=== PATIENT | female | born 1985 | race African-American/Black ===

== ENCOUNTER 2018-08-03 15:47 | Inpatient (IN) | payer BC ==
[2018-08-03] MEDS ORDERED: Dinoprostone* 10 MG VAG.SUPP VAGINAL ONE (17:48)
[2018-08-03] MEDS ORDERED: Labetalol TAB* 200 MG PO SCH ×2 (18:00)
[2018-08-03 19:01] LABS: Hematocrit 35 % (35-47); Hemoglobin 11.7 g/dl (12.0-16.0); Mean Corpuscular HGB Conc 33 g/dl (31-36); Mean Corpuscular Hemoglobin 30 pg (27-31); Mean Corpuscular Volume 89 fL (80-97); Mean Platelet Volume 10.4 fL (7.4-10.4); Platelet Count 217 10^3/ul (150-450); Red Blood Count 3.95 10^6/ul (4.00-5.40); Red Cell Distribution Width 15 % (10.5-15); White Blood Count 8.3 10^3/ul (3.5-10.8)
[2018-08-03 19:15] LABS: ABS Basophils 0 10^3/ul (0-0.2); ABS Eosinophils 0.1 10^3/ul (0-0.6); ABS Lymphocytes 2.4 10^3/ul (1.0-4.8); ABS Monocytes 0.4 10^3/ul (0-0.8); ABS Neutrophils 5.5 10^3/ul (1.5-7.7); ABS Nucleated RBC 0 10^3/ul; Eosinophil % 0.7 %; Lymphocyte % 28.4 %; Nucleated Red Blood Cells % 0
[2018-08-03 19:17] LABS: Albumin 3.5 g/dL (3.2-5.2); Albumin/Globulin Ratio 1.2 (1-3); BUN/Creatinine Ratio 17.2 (8-20); Calcium 9.1 mg/dL (8.6-10.3); EGFR African American 131.8 (>60); Potassium 3.7 mmol/L (3.5-5.0); Total Bilirubin 0.2 mg/dL (0.2-1.0); Total Protein 6.5 g/dL (6.4-8.9); Uric Acid 4.7 mg/dL (2.3-6.6)
[2018-08-03] MEDS ORDERED: Labetalol IV* 5 MG/ML 20 ML VIAL IV PUSH ONE (21:27)
[2018-08-03] MEDS ORDERED: Labetalol IV* 5 MG/ML 20 ML VIAL ONE (21:36)
[2018-08-03] MEDS ORDERED: Famotidine TAB* 20 MG PO PRN (22:18)
--- NOTE | 2018-08-03 22:51 | HP ---
General Information - Reason for Visit CHTN with borderline IUGR/oligohydramnios and 2+ protein on urine dip - General Information Maternal Age: 32 Grav: 1 Para: 0 SAB: 0 IEA: 0 Estimated Due Date: 08/28/18 Determined By: Early Ultrasound Maternal Blood Type and Rh: O Positive - Results this Serology/RPR Result: Non-Reactive Rubella Result: Immune HBsAg Result: Negative HIV Result: Negative GBS Culture Result: Negative Past Medical History Pertinent Past Medical History: See Records Pertinent Past Surgical History: See Records Pertinent Family History: Non-Contributory - Antepartal Records Antepartal Records: Reviewed, Complicated by: - CHTN Review of Systems Constitutional: Comfortable CV Complaint: No Respiratory: Shortness of Breath: No Gastrointestinal: No Nausea/Vomiting, Normal Bowel Movement Genitourinary: No Dysuria, No Bleeding, No Leaking Fluid Musculoskeletal: No Complaint, No Epigastric Pain Neurological: No Headache, No Visual Changes Movement: Normal Exam Allergies/Adverse Reactions: Allergies Sulfa (Sulfonamide Antibiotics) Allergy (Verified 08/03/18 18:03) Hives sulfamethoxazole [From Bactrim] Allergy (Verified 08/03/18 18:03) Hives trimethoprim [From Bactrim] Allergy (Verified 08/03/18 18:03) Hives Lab Values - Entire Visit: Laboratory Tests 08/03/18 08/03/18 08/03/18 18:40 18:40 18:40 WBC 8.3 RBC 3.95 L Hgb 11.7 L Hct 35 MCV 89 MCH 30 MCHC 33 RDW 15 Plt Count 217 MPV 10.4 Neut % (Auto) 66.1 Lymph % (Auto) 28.4 [place] % (Auto) 4.4 Eos % (Auto) 0.7 Baso % (Auto) 0.4 Absolute Neuts (auto) 5.5 Absolute Lymphs (auto) 2.4 Absolute Monos (auto) 0.4 Absolute Eos (auto) 0.1 Absolute Basos (auto) 0 Absolute Nucleated RBC 0 Nucleated RBC % 0 Sodium 137 Potassium 3.7 Chloride 108 Carbon Dioxide 20 L Anion Gap 9 BUN 11 Creatinine 0.64 Est GFR ( Amer) 131.8 Est GFR (Non-Af Amer) 109.0 BUN/Creatinine Ratio 17.2 Glucose 114 H Uric Acid 4.7 Calcium 9.1 Total Bilirubin 0.20 AST 23 ALT 25 Alkaline Phosphatase 139 H Total Protein 6.5 Albumin 3.5 Globulin 3.0 Albumin/Globulin Ratio 1.2 Blood Type O Positive Antibody Screen Negative - Measurements Height: 5 ft 2 in Weight: 220 lb Weight in lbs: [phone] Body Mass Index (BMI): 40.2 Pre- Weight: 229 lb Weight Gained This : -9 lbs and 0 ozs - Exam Breast: Breast Exam Deferred CVA: No CVA Tenderness Extremities: No Edema Heart: Normal Rhythm/Heart Sounds HEENT: No Significant Findings Lungs: Clear Bilaterally Rectal: Rectal Exam Deferred Reflexes: DTR 2+ - Abdominal Exam Abdomen Exam: Non-Tender, Fundal Height Consistent with Dates - Ultrasound/Biophysical Profile Ultrasound Findings: Sono done in office showed EFW 11.5%ile and ELANA of 6. BPP:01/03 Also prior EFW at 32wks was ~30%ile and at 28wks had been >50%ile. Vtx Targeted Exam Findings Cervical Exam: Closed Station: -3 Presenting Part: Vertex Membrane Status: Intact EFM Findings - External Monitor Findings External Monitor Findings: Accelerations Present, No Pattern of Variable or Late Decelerations, Variability Moderate, Baseline Stable Contractions: None Assessment/Plan - Assessment 32yo @36.3wks GA with CHTN and possible superimposed PEC, borderline IUGR with decreasing percentiles for EFW and borderline oligohydramnios. A long discussion was had regarding the risks and benefits of starting induction right away versus waiting for the 24hr urine collection and possibly waiting until 37 weeks. The patient and her elected to start induction now. Will continue 24hr urine collection anyway. BP in the office had been normal but were severely elevated on arrival even after administering routine labetalol dose. Therefore 20mg labetalol IV was given with improvement in BPs. - Obstetrical Risk Factors Obstetrical Risk Factors: Proteinuria, Chronic Hypertension, IUGR - Plan Plan: Induction, Cervical Ripening
[2018-08-04] MEDS: Labetalol TAB* 200 MG PO SCH (07:04)
[2018-08-04] MEDS: Labetalol IV* 5 MG/ML 20 ML VIAL IV PUSH PRN ×2 (07:23→08:25)
[2018-08-04] MEDS ORDERED: Magnesium Sulf 4 GM/100 ML IV* 4,000 MG/100 ML BAG IVPB ONE (09:16)
[2018-08-04] MEDS ORDERED: Sodium Citrate/Citric Acid* 15 ML UDC ONE (09:29)
[2018-08-04] MEDS ORDERED: Metoclopramide IV* 5 MG/ML 2 ML VIAL ONE (09:29)
[2018-08-04] MEDS ORDERED: OXYTOCIN* 10 UNITS/ML 1 ML VIAL ONE (09:34)
[2018-08-04] MEDS ORDERED: Morphine PF AMP (0.5MG/ML)* 5 MG/10 ML AMP ONE (09:35)
[2018-08-04] MEDS ORDERED: Metoclopramide IV* 5 MG/ML 2 ML VIAL IV SLOW PU ONE (09:36)
[2018-08-04] MEDS ORDERED: Sodium Citrate/Citric Acid* 15 ML UDC PO ONE (09:36)
[2018-08-04] MEDS ORDERED: Buffered Lidocaine 1% SYRIN* 1 ML/SYRINGE INTRADERM ONE (09:36)
[2018-08-04] MEDS ORDERED: Bupivacaine-MPF SPINAL* 7.5 MG/ML - 2ML AMP ONE (09:43)
[2018-08-04] MEDS ORDERED: Lidocaine 2% PF * 5 ML VIAL ONE (09:43)
[2018-08-04] MEDS ORDERED: Bupivacaine 0.5% SDV PF* 30ML VIAL ONE (09:43)
[2018-08-04] MEDS ORDERED: ceFOXitin 2 GM IVPREMIX* 2 GM/50 ML BAG ONE (09:48)
[2018-08-04] MEDS ORDERED: ceFOXitin 2 GM IVPREMIX* 2 GM/50 ML BAG IVPB ONE (09:49)
[2018-08-04] MEDS ORDERED: Magnesium Sulfate OB PREMIX* 40 GM/1,000 ML BAG IVPB SCH (10:00)
[2018-08-04] MEDS ORDERED: Lactated Ringers 1000 ML Bag* 1,000 ML IV SCH ×2 (10:00→11:00)
[2018-08-04] MEDS ORDERED: Naloxone* 0.4 MG/ML 1 ML VIAL IV PRN ×2 (10:21→10:23)
[2018-08-04] MEDS ORDERED: fentaNYL* 50 MCG/ML 2 ML VIAL (100 MCG VIAL) IV PRN (10:21)
[2018-08-04] MEDS ORDERED: Ondansetron INJ* 2 MG/ML VIAL IV PRN (10:23)
[2018-08-04] MEDS ORDERED: DiMENhydriNATE IV* 50 MG/ML VIAL IV PUSH PRN (10:23)
[2018-08-04] MEDS ORDERED: Scopolamine 1.5 mg* PATCH TRANSDERM PRN (10:23)
[2018-08-04] MEDS ORDERED: Acetaminophen TAB* 325 MG PO PRN (10:23)
[2018-08-04] MEDS ORDERED: Nalbuphine* 10 MG/ML 1 ML VIAL IV PRN (10:23)
[2018-08-04] MEDS ORDERED: diPHENhydraMINE IV* 50 MG/ML 1 ml VIAL (BENADRYL) IV PRN (10:23)
[2018-08-04] MEDS ORDERED: HYDROcodone/ACETAMIN 5-325 MG* 1 TAB PO PRN ×2 (10:23)
[2018-08-04] MEDS ORDERED: PROCHLORPERAZINE INJ 5 MG/ML 2 ML VIAL IV PRN (10:23)
[2018-08-04] MEDS ORDERED: Glycerin ADULT SUPP PR PRN (10:56)
[2018-08-04] MEDS ORDERED: Dibucaine 1% 28.35 GM TUBE PR PRN (10:56)
[2018-08-04] MEDS ORDERED: Zolpidem TAB* 5 MG PO PRN (10:56)
[2018-08-04] MEDS ORDERED: Witch Hazel PAD* JAR TOPICAL PRN (10:56)
[2018-08-04] MEDS ORDERED: Oxytocin in LR* 20 UNITS/1,000 ML BAG IVPB SCH (11:00)
--- NOTE | 2018-08-04 11:57 | OP ---
AMENDED REPORT NOW INCLUDES DATE OF OPERATION - ESIGNED BEFORE ADJUSTMENT * AMENDED REPORT NOW INCLUDES CALL CENTER DIRECTOR PER DR. IYER DATE OF OPERATION: 08/04/18 - ROOM #103 DATE OF : 87 SURGEON: Chalino Iyer MD CALL CENTER DIRECTOR: Cindy Hsu CNM ANESTHESIA: Spinal. PRE-OP DIAGNOSES: Preeclampsia with severe features and oligohydramnios. POST-OP DIAGNOSES: Preeclampsia with severe features and oligohydramnios. OPERATIVE PROCEDURE: Low transverse section. ESTIMATED BLOOD LOSS: 600 cc. FINDINGS: This is a 32-year-old 1, para 0, who is a chronic hypertensive, been on labetalol 200 mg twice a day, presented to the office on the day before her surgery with elevated blood pressures and 2+ proteinuria. She was sent up. Also had noted only a 6 cm pocket at 36 weeks on ELANA. She was admitted and started on Cervidil to induce the labor and overnight her pressures on several occasions were well over 160 systolic and diastolics in the 100s. Given her lack of response to IV labetalol and the fact that her Cervidil did not cause her to dilate at all, the decision was made to proceed with . The risks, benefits, alternatives, and indications were discussed with the patient and was recommended that she undergo the . At the time of , she had a viable male, Apgars 10 and 9, the weight was 5 pounds 11 ounces, 2567 g. Normal appearing uterus, fallopian tubes, and ovaries. DESCRIPTION OF PROCEDURE: The patient identified, procedure identified as a low transverse section. The patient was taken to the operating room, prepped and draped in the usual fashion in the left lateral recumbent position under spinal anesthesia. A Pfannenstiel incision made through the abdomen and carried down through fat, fascia, and peritoneum. A transverse incision was made in the lower uterine segment, extended laterally using blunt dissection. The above was delivered through the incision with ease. The cord was doubly clamped and cut, and the was handed to the waiting peoplesoft hrms developer. Cord blood was obtained. Placenta was delivered spontaneously. The uterus was wiped out with wet lap sponge. The uterus was attempted to be brought out through the incision; however, it would not come out easily, so the uterus was sound in situ. There was a 0 Polysorb which was used to close the uterine hysterotomy incision and then a second layer was used to imbricate the first layer. Good hemostasis was verified. Irrigation was utilized and suctioned out. Both tubes and ovaries were inspected and found to be normal in appearance. Good hemostasis achieved in the subperitoneal space. Peritoneum was then closed using 3-0 Polysorb in a running fashion. Good hemostasis achieved in the subrectus layers. After inspection, fascia was then closed using 0 Polysorb in a running fashion. Good hemostasis achieved in the subcu. Copious irrigation was utilized and suctioned out and the skin was closed with 4 -0 Monocryl in a subcuticular fashion. All sponge and instrument counts were correct and the patient returned to the recovery room in stable condition. [id number]/[facility] #: [id number] ANSHU
[2018-08-04] MEDS ORDERED: hydrALAZINE IV* 20 MG/ML VIAL ONE (15:51)
[2018-08-04 18:27] LABS: ABS Basophils 0 10^3/ul (0-0.2); ABS Eosinophils 0 10^3/ul (0-0.6); ABS Lymphocytes 1.4 10^3/ul (1.0-4.8); ABS Monocytes 0.7 10^3/ul (0-0.8); ABS Neutrophils 9.6 10^3/ul (1.5-7.7); ABS Nucleated RBC 0 10^3/ul; Eosinophil % 0.2 %; Hematocrit 36 % (35-47); Hemoglobin 11.7 g/dl (12.0-16.0); Lymphocyte % 12.2 %; Mean Corpuscular HGB Conc 33 g/dl (31-36); Mean Corpuscular Hemoglobin 29 pg (27-31); Mean Corpuscular Volume 89 fL (80-97); Mean Platelet Volume 10.5 fL (7.4-10.4); Nucleated Red Blood Cells % 0; Platelet Count 218 10^3/ul (150-450); Red Blood Count 4.03 10^6/ul (4.00-5.40); Red Cell Distribution Width 15 % (10.5-15); White Blood Count 11.7 10^3/ul (3.5-10.8)
[2018-08-04 18:46] LABS: Albumin 3.2 g/dL (3.2-5.2); Albumin/Globulin Ratio 1.1 (1-3); BUN/Creatinine Ratio 12.5 (8-20); Calcium 7.7 mg/dL (8.6-10.3); EGFR African American 153.8 (>60); EGFR Non-African American 127.1 (>60); Globulin 2.8 g/dL (2-4); Potassium 3.8 mmol/L (3.5-5.0); Total Bilirubin 0.5 mg/dL (0.2-1.0)
[2018-08-04 18:50] LABS: Magnesium 4.8 mg/dL (1.9-2.7)
[2018-08-04] MEDS ORDERED: Labetalol IV* 5 MG/ML 20 ML VIAL IV PUSH ONE (20:00)
[2018-08-04] MEDS: Simethicone TAB* 80 MG TAB.CHEW PO SCH ×2 (20:42→23:48)
[2018-08-04] MEDS: Labetalol TAB* 100 MG PO SCH (20:42)
[2018-08-04] MEDS: Docusate CAP* 100 MG PO SCH ×2 (20:42→23:48)
[2018-08-04] MEDS: Ibuprofen TAB* 600 MG PO PRN (23:46)
[2018-08-05] MEDS ORDERED: oxyCODONE/Acetamin 5/325 MG* TAB PO PRN (01:53)
[2018-08-05] MEDS ORDERED: Acetaminophen TAB* 325 MG PO PRN (01:53)
[2018-08-05] MEDS: oxyCODONE/Acetamin 5/325 MG* TAB PO PRN ×3 (04:57→22:24)
[2018-08-05 06:55] LABS: ABS Basophils 0.1 10^3/ul (0-0.2); ABS Eosinophils 0.1 10^3/ul (0-0.6); ABS Monocytes 0.7 10^3/ul (0-0.8); ABS Neutrophils 8.6 10^3/ul (1.5-7.7); ABS Nucleated RBC 0 10^3/ul; Eosinophil % 1.3 %; Hematocrit 33 % (35-47); Hemoglobin 10.9 g/dl (12.0-16.0); Lymphocyte % 17.4 %; Mean Corpuscular HGB Conc 33 g/dl (31-36); Mean Corpuscular Hemoglobin 29 pg (27-31); Mean Corpuscular Volume 89 fL (80-97); Mean Platelet Volume 10.2 fL (7.4-10.4); Nucleated Red Blood Cells % 0.1; Platelet Count 206 10^3/ul (150-450); Red Blood Count 3.76 10^6/ul (4.00-5.40); Red Cell Distribution Width 15 % (10.5-15); White Blood Count 11.4 10^3/ul (3.5-10.8)
[2018-08-05] MEDS ORDERED: LABETALOL 200 MG PO SCH (09:00)
[2018-08-05] MEDS: Ferrous Gluconate TAB* 324 MG TAB PO SCH ×2 (09:07→21:06)
[2018-08-05] MEDS: Ibuprofen TAB* 600 MG PO PRN ×3 (09:12→21:05)
[2018-08-05] MEDS: Docusate CAP* 100 MG PO SCH ×3 (09:12→21:05)
[2018-08-05] MEDS: Simethicone TAB* 80 MG TAB.CHEW PO SCH ×4 (09:12→21:05)
[2018-08-05] MEDS: Labetalol TAB* 100 MG PO SCH (09:34)
--- NOTE | 2018-08-05 19:36 | HP ---
General Information - Reason for Visit cervidil for post dates - General Information Maternal Age: 32 Grav: 1 Para: 0 SAB: 0 IEA: 0 Estimated Due Date: 08/28/18 Determined By: Early Ultrasound Maternal Blood Type and Rh: O Positive - Results this Serology/RPR Result: Non-Reactive Rubella Result: Immune HBsAg Result: Negative HIV Result: Negative GBS Culture Result: Negative Past Medical History Delivery History: See Records Pertinent Past Medical History: Non-Contributory Pertinent Past Surgical History: None Pertinent Family History: Non-Contributory - Antepartal Records Antepartal Records: Reviewed, Complicated by: - ivf Review of Systems Constitutional: Comfortable Genitourinary: No Bleeding, No Leaking Fluid Musculoskeletal: No Complaint Neurological: No Headache Movement: Normal Exam Allergies/Adverse Reactions: Allergies Sulfa (Sulfonamide Antibiotics) Allergy (Verified 08/03/18 18:03) Hives sulfamethoxazole [From Bactrim] Allergy (Verified 08/03/18 18:03) Hives trimethoprim [From Bactrim] Allergy (Verified 08/03/18 18:03) Hives Vital Signs 08/05/18 08/05/18 08/05/18 04:57 10:40 11:34 Temperature 97.8 F 97.4 F Pulse Rate 83 87 Respiratory 16 16 Rate Blood Pressure 129/78 122/69 (mmHg) 08/05/18 08/05/18 08/05/18 15:51 16:30 18:20 Temperature 98.3 F Pulse Rate 89 82 Respiratory 16 18 Rate Blood Pressure 142/90 136/71 (mmHg) Lab Values - Entire Visit: Laboratory Tests 08/03/18 08/03/18 08/03/18 18:40 18:40 18:40 WBC 8.3 RBC 3.95 L Hgb 11.7 L Hct 35 MCV 89 MCH 30 MCHC 33 RDW 15 Plt Count 217 MPV 10.4 Neut % (Auto) 66.1 Lymph % (Auto) 28.4 [place] % (Auto) 4.4 Eos % (Auto) 0.7 Baso % (Auto) 0.4 Absolute Neuts (auto) 5.5 Absolute Lymphs (auto) 2.4 Absolute Monos (auto) 0.4 Absolute Eos (auto) 0.1 Absolute Basos (auto) 0 Absolute Nucleated RBC 0 Nucleated RBC % 0 Sodium 137 Potassium 3.7 Chloride 108 Carbon Dioxide 20 L Anion Gap 9 BUN 11 Creatinine 0.64 Est GFR ( Amer) 131.8 Est GFR (Non-Af Amer) 109.0 BUN/Creatinine Ratio 17.2 Glucose 114 H Uric Acid 4.7 Calcium 9.1 Magnesium Total Bilirubin 0.20 AST 23 ALT 25 Alkaline Phosphatase 139 H Total Protein 6.5 Albumin 3.5 Globulin 3.0 Albumin/Globulin Ratio 1.2 Blood Type O Positive Antibody Screen Negative 08/04/18 08/04/18 08/05/18 18:17 18:17 06:46 WBC 11.7 H 11.4 H RBC 4.03 3.76 L Hgb 11.7 L 10.9 L Hct 36 33 L MCV 89 89 MCH 29 29 MCHC 33 33 RDW 15 15 Plt Count 218 206 MPV 10.5 H 10.2 Neut % (Auto) 81.7 74.8 Lymph % (Auto) 12.2 17.4 [place] % (Auto) 5.8 5.9 Eos % (Auto) 0.2 1.3 Baso % (Auto) 0.1 0.6 Absolute Neuts (auto) 9.6 H 8.6 H Absolute Lymphs (auto) 1.4 2.0 Absolute Monos (auto) 0.7 0.7 Absolute Eos (auto) 0 0.1 Absolute Basos (auto) 0 0.1 Absolute Nucleated RBC 0 0 Nucleated RBC % 0 0.1 Sodium 133 L Potassium 3.8 Chloride 105 Carbon Dioxide 22 Anion Gap 6 BUN 7 Creatinine 0.56 Est GFR ( Amer) 153.8 Est GFR (Non-Af Amer) 127.1 BUN/Creatinine Ratio 12.5 Glucose 81 Uric Acid Calcium 7.7 L Magnesium 4.8 H* Total Bilirubin 0.50 AST 27 ALT 23 Alkaline Phosphatase 126 H Total Protein 6.0 L Albumin 3.2 Globulin 2.8 Albumin/Globulin Ratio 1.1 Blood Type Antibody Screen - Measurements Height: 5 ft 2 in Weight: 220 lb Weight in lbs: 220.272847 Body Mass Index (BMI): 40.2 Pre- Weight: 229 lb Weight Gained This : -9 lbs and 0 ozs - Exam Breast: Breast Exam Deferred Extremities: No Edema Heart: Normal Rhythm/Heart Sounds HEENT: No Significant Findings Lungs: Clear Bilaterally Reflexes: DTR 2+ Thyroid: No Thyromegaly Targeted Exam Findings Cervical Exam: 1cm Effacement: 70% Station: -1 Presenting Part: Vertex Membrane Status: Intact EFM Findings - External Monitor Findings Baseline Heart Rate: 130 External Monitor Findings: Accelerations Present, Variability Moderate Contractions: None Assessment/Plan - Obstetrical Risk Factors Obstetrical Risk Factors: Post-Dates - Plan Plan: Cervical Ripening
[2018-08-05] MEDS: Labetalol TAB* 200 MG PO SCH (21:06)
[2018-08-06] MEDS: oxyCODONE/Acetamin 5/325 MG* TAB PO PRN ×5 (02:25→21:23)
[2018-08-06] MEDS: Ibuprofen TAB* 600 MG PO PRN ×4 (04:07→23:22)
[2018-08-06] MEDS: Labetalol TAB* 200 MG PO SCH ×2 (08:40→20:42)
[2018-08-06] MEDS: Simethicone TAB* 80 MG TAB.CHEW PO SCH ×5 (08:40→21:21)
[2018-08-06] MEDS: Docusate CAP* 100 MG PO SCH ×3 (08:41→20:42)
[2018-08-06] MEDS ORDERED: Labetalol TAB* 100 MG ONE (22:43)
[2018-08-06] MEDS: Labetalol TAB* 100 MG PO SCH (22:45)
[2018-08-06] MEDS ORDERED: Labetalol TAB* 300 MG PO SCH (23:00)
[2018-08-07] MEDS ORDERED: Labetalol TAB* 100 MG PO ONE (00:33)
[2018-08-07] MEDS: oxyCODONE/Acetamin 5/325 MG* TAB PO PRN ×4 (00:50→20:04)
[2018-08-07] MEDS: Ibuprofen TAB* 600 MG PO PRN ×2 (05:50→20:05)
[2018-08-07] MEDS: Simethicone TAB* 80 MG TAB.CHEW PO SCH ×3 (08:08→21:24)
[2018-08-07] MEDS: Labetalol TAB* 200 MG PO SCH ×2 (08:08→21:24)
[2018-08-07] MEDS: Docusate CAP* 100 MG PO SCH ×3 (08:08→20:04)
--- NOTE | 2018-08-07 08:33 | PTEDU ---
Patient Name: ZENAIDA ESPINOZA ZENAIDA ESPINOZA selected video: Follow Me Mum: [facility] to Success[facility] to view on 08/08/19 19 at 8:33:02 AM [email or web address]
--- NOTE | 2018-08-07 09:39 | PN ---
Progress Note - Progress Note Date of Service: 08/07/18 SOAP: Subjective: [Patient is post op day 3 from Section secondary to pre-eclampsia. She is currently on labetolol for HTN. She denies chest pain, shortness of breath, nausea, vomiting, abdominal pain, headaches or visual disturbances.] Objective: [ Vital Signs - 8 hr 08/07/18 08/07/18 08/07/18 03:45 04:48 05:49 Temperature Pulse Rate Respiratory 18 18 Rate Blood Pressure 185/98 (mmHg) 08/07/18 08/07/18 08/07/18 07:32 09:02 09:11 Temperature 98.8 F Pulse Rate 97 Respiratory 18 18 18 Rate Blood Pressure 197/105 (mmHg) Laboratory Last Values WBC 11.4 10^3/ul (3.5-10.8) H 08/05/18 06:46 RBC 3.76 10^6/ul (4.00-5.40) L 08/05/18 06:46 Hgb 10.9 g/dl (12.0-16.0) L 08/05/18 06:46 Hct 33 % (35-47) L 08/05/18 06:46 MCV 89 fL (80-97) 08/05/18 06:46 MCH 29 pg (27-31) 08/05/18 06:46 MCHC 33 g/dl (31-36) 08/05/18 06:46 RDW 15 % (10.5-15) 08/05/18 06:46 Plt Count 206 10^3/ul (150-450) 08/05/18 06:46 MPV 10.2 fL (7.4-10.4) 08/05/18 06:46 Neut % (Auto) 74.8 % 08/05/18 06:46 Lymph % (Auto) 17.4 % 08/05/18 06:46 [place] % (Auto) 5.9 % 08/05/18 06:46 Eos % (Auto) 1.3 % 08/05/18 06:46 Baso % (Auto) 0.6 % 08/05/18 06:46 Absolute Neuts (auto) 8.6 10^3/ul (1.5-7.7) H 08/05/18 06:46 Absolute Lymphs (auto) 2.0 10^3/ul (1.0-4.8) 08/05/18 06:46 Absolute Monos (auto) 0.7 10^3/ul (0-0.8) 08/05/18 06:46 Absolute Eos (auto) 0.1 10^3/ul (0-0.6) 08/05/18 06:46 Absolute Basos (auto) 0.1 10^3/ul (0-0.2) 08/05/18 06:46 Absolute Nucleated RBC 0 10^3/ul 08/05/18 06:46 Nucleated RBC % 0.1 08/05/18 06:46 Sodium 133 mmol/L (135-145) L 08/04/18 18:17 Potassium 3.8 mmol/L (3.5-5.0) 08/04/18 18:17 Chloride 105 mmol/L (101-111) 08/04/18 18:17 Carbon Dioxide 22 mmol/L (22-32) 08/04/18 18:17 Anion Gap 6 mmol/L (2-11) 08/04/18 18:17 BUN 7 mg/dL (6-24) 08/04/18 18:17 Creatinine 0.56 mg/dL (0.51-0.95) 08/04/18 18:17 Est GFR ( Amer) 153.8 (>60) 08/04/18 18:17 Est GFR (Non-Af Amer) 127.1 (>60) 08/04/18 18:17 BUN/Creatinine Ratio 12.5 (8-20) 08/04/18 18:17 Glucose 81 mg/dL (70-100) 08/04/18 18:17 Uric Acid 4.7 mg/dL (2.3-6.6) 08/03/18 18:40 Calcium 7.7 mg/dL (8.6-10.3) L 08/04/18 18:17 Magnesium 4.8 mg/dL (1.9-2.7) H* 08/04/18 18:17 Total Bilirubin 0.50 mg/dL (0.2-1.0) 08/04/18 18:17 AST 27 U/L (13-39) 08/04/18 18:17 ALT 23 U/L (7-52) 08/04/18 18:17 Alkaline Phosphatase 126 U/L (34-104) H 08/04/18 18:17 Total Protein 6.0 g/dL (6.4-8.9) L 08/04/18 18:17 Albumin 3.2 g/dL (3.2-5.2) 08/04/18 18:17 Globulin 2.8 g/dL (2-4) 08/04/18 18:17 Albumin/Globulin Ratio 1.1 (1-3) 08/04/18 18:17 Blood Type O Positive 08/03/18 18:40 Antibody Screen Negative 08/03/18 18:40 Acetaminophen (Tylenol Tab*) 650 mg PO Q4H PRN PRN Reason: PAIN Dibucaine (Nupercainal 1% Oint*) 1 applic MI QID PRN PRN Reason: DISCOMFORT Docusate Sodium (Colace Cap*) 100 mg PO TID [facility] Last Admin: 08/07/18 08:08 Dose: 100 mg Famotidine (Pepcid Tab*) 20 mg PO BID PRN; Protocol PRN Reason: HEARTBURN Glycerin (Glycerin Adult Supp*) 1 supp MI ONCE PRN PRN Reason: CONSTIPATION Magnesium Sulfate (Magnesium Sulfate Ob Premix*) 40 gm in 1,000 mls @ 50 mls/ hr IVPB .PER RATE [facility] Last Admin: 08/05/18 06:46 Dose: 50 mls/hr Lactated Ringer's (Lactated Ringers 1000 Ml Bag*) 1,000 mls @ 125 mls/hr IV PER RATE NANCY Lactated Ringer's (Lactated Ringers 1000 Ml Bag*) 1,000 mls @ 0 mls/hr IV KVO [facility] Ibuprofen (Motrin Tab*) 600 mg PO Q6H PRN PRN Reason: PAIN - MILD Last Admin: 08/07/18 05:50 Dose: 600 mg Labetalol HCl (Trandate Iv*) 20 mg IV PUSH ONCE PRN PRN Reason: BLOOD PRESSURE Last Admin: 08/04/18 08:25 Dose: 20 mg Labetalol HCl (Trandate Tab*) 400 mg PO BID NANCY Last Admin: 08/07/18 08:08 Dose: 400 mg Oxycodone/Acetaminophen (Percocet 5/325 Tab*) 1 tab PO Q4H PRN PRN Reason: PAIN - MODERATE Last Admin: 08/07/18 05:49 Dose: 1 tab Oxycodone/Acetaminophen (Percocet 5/325 Tab*) 2 tab PO Q4H PRN PRN Reason: PAIN - SEVERE Pharmacy Profile Note (Scopolamine Patch Remove*) 1 note PATCH OFF .AFTER 72 HOURS PRN PRN Reason: nausea Simethicone (Mylicon Tab*) 80 mg PO HS NANCY Last Admin: 08/07/18 08:08 Dose: 80 mg Witch Saloni (Tucks*) 1 pad TOPICAL .PRN PRN PRN Reason: DISCOMFORT Zolpidem Tartrate (Ambien Tab*) 5 mg PO BEDTIME PRN PRN Reason: SLEEP Lungs CTA b/l no CVA tenderness b/i CV RRR Abdomen soft, not distended, not tender, NABS, Uterus is firm not tender and below umbilicus. Incision clean/dry/intact with no discharge, erythema or induration.] Assessment: [POD 3 section, course complicated by persistent severe hypertension despite anti HTN meds.] Plan: [Continue current care, Hospitalist team consulted for HTN management.]
[2018-08-07] MEDS ORDERED: NIFEdipine ER TAB* 60 MG PO SCH (10:00)
[2018-08-07] MEDS ORDERED: Scopolamine PATCH Remove* 1 NOTE MISC PATCH OFF PRN (10:26)
--- NOTE | 2018-08-07 12:21 | CONSULT ---
Subjective Date of Service: 08/07/18 Interval History: Medicine CONSULT Requesting MD: Dickson PCP: Sharonda CC: hypertension HPI: Patient is 32 year old woman who is 3-days post-. During final months of she had hypertension, and proteinuria was noted 5 days ago. She had without complications on 08/04. Since delivery her BP has not improved. As outpatient she was on labetalol 200 mg BID, now she is on 400 BID plus Procardia XL 60 mg was initiated this morning. She has no headache, chest tightness, or shortness of breath. She denies hypertension prior to , but she rarely goes to her PCP. She is and plans to continue that. 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, carpal tunnel syndrome Review of Systems - Measurements Intake and Output: Intake and Output Last 24 Hours 08/05/18 08/06/18 08/07/18 08/08/18 06:59 06:59 06:59 06:59 Intake Total Output Total 300 Balance -300 Weight 99.79 kg Intake: IV Fluids LR with Pit Medicated IV GEN - Magnesium Output: [place] 300 - Review of Systems Constitutional Symptoms: Positive: Weight Gain Dermatology: Positive: Normal HEENT: Positive: Normal Eyes: Positive: Normal Thyroid: Positive: Normal Pulmonary: Positive: Normal Cardiology: Positive: Normal Gastroenterology: Positive: Normal Genital - Urinary: Positive: Normal Genitourinay - Female: Positive: Vaginal Discharge Musculoskeletal: Positive: Joint Pain, Arthritis Endocrinology: Positive: Normal Neurology: Positive: Normal Psychiatry: Positive: Normal Objective Active Medications: Current Medications Acetaminophen (Tylenol Tab*) 650 mg PO Q4H PRN PRN Reason: PAIN Dibucaine (Nupercainal 1% Oint*) 1 applic AL QID PRN PRN Reason: DISCOMFORT Docusate Sodium (Colace Cap*) 100 mg PO TID NANCY Last Admin: 08/07/18 08:08 Dose: 100 mg Famotidine (Pepcid Tab*) 20 mg PO BID PRN; Protocol PRN Reason: HEARTBURN Glycerin (Glycerin Adult Supp*) 1 supp AL ONCE PRN PRN Reason: CONSTIPATION Ibuprofen (Motrin Tab*) 600 mg PO Q6H PRN PRN Reason: PAIN - MILD Last Admin: 08/07/18 05:50 Dose: 600 mg Labetalol HCl (Trandate Iv*) 20 mg IV PUSH ONCE PRN PRN Reason: BLOOD PRESSURE Last Admin: 08/04/18 08:25 Dose: 20 mg Labetalol HCl (Trandate Tab*) 400 mg PO BID [facility] Last Admin: 08/07/18 08:08 Dose: 400 mg Nifedipine (Procardia Xl Tab*) 60 mg PO DAILY [facility] Last Admin: 08/07/18 10:08 Dose: 60 mg Oxycodone/Acetaminophen (Percocet 5/325 Tab*) 1 tab PO Q4H PRN PRN Reason: PAIN - MODERATE Last Admin: 08/07/18 05:49 Dose: 1 tab Oxycodone/Acetaminophen (Percocet 5/325 Tab*) 2 tab PO Q4H PRN PRN Reason: PAIN - SEVERE Pharmacy Profile Note (Scopolamine Patch Remove*) 1 note PATCH OFF .AFTER 72 HOURS PRN PRN Reason: nausea Simethicone (Mylicon Tab*) 80 mg PO [facility] Last Admin: 08/07/18 08:08 Dose: 80 mg Witch Saloni (Tucks*) 1 pad TOPICAL .PRN PRN PRN Reason: DISCOMFORT Zolpidem Tartrate (Ambien Tab*) 5 mg PO BEDTIME PRN PRN Reason: SLEEP Vital Signs - 8 hr 08/07/18 08/07/18 08/07/18 04:48 05:49 07:32 Temperature 37.1 C Pulse Rate 97 Respiratory 18 18 18 Rate Blood Pressure 197/105 (mmHg) O2 Sat by Pulse Oximetry 08/07/18 08/07/18 08/07/18 09:02 09:11 09:17 Temperature Pulse Rate 90 Respiratory 18 18 Rate Blood Pressure 187/103 (mmHg) O2 Sat by Pulse 100 Oximetry 08/07/18 08/07/18 10:53 11:28 Temperature 36.9 C Pulse Rate 88 83 Respiratory 18 Rate Blood Pressure 160/90 172/99 (mmHg) O2 Sat by Pulse 100 Oximetry Oxygen Devices in Use Now: None 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 Eyes: No Scleral Icterus Ears/Nose/Mouth/Throat: NL Teeth, Lips, Gums Neck: NL Appearance and Movements; NL JVP Respiratory: Symmetrical Chest Expansion and Respiratory Effort Cardiovascular: NL Sounds; No Murmurs; No JVD, RRR Abdominal: NL Sounds; No Tenderness; No Distention Lymphatic: No Cervical Adenopathy Extremities: No Edema Neurological: Alert and Oriented x 3 Nutrition: Taking PO's Result Diagrams: 08/05/18 06:46 08/04/18 18:17 Assessment/Plan - Billing Assessment: 32 year old woman with pre-eclampsia, now 3 days post-, remains hypertensive Recommendations: 1) Hypertension: Continue labetalol 400 BID, and Nifedepine ER started today. Will add HCTZ, should be safe for at this dose Goal is to decrease BP below 150/90 prior to discharge. If diuretic is not effective, will stop nifedipine start amlodipine twice a day. We will follow with you. 2) To assess renal effects of pre-eclampsia: Will check BMP and urine protein in AM. I suspect patient was overweight and hypertensive prior to , but I do not have records to assess this. Counseling and/or Coordination of Care Minutes: Discussed case and goals with Dr. Forman
[2018-08-07] MEDS: Hydrochlorothiazide TAB* 25 MG PO SCH (14:40)
[2018-08-07 17:29] LABS: UR Microalbumin (mg/L) 37.7
[2018-08-07 17:45] LABS: Urine Creatinine 13.07 mg/dL; Urine Microalbumin/Creatinine 288.4 (<31)
[2018-08-07] MEDS ORDERED: Furosemide IV* 10 MG/ML 2 ML VIAL (20 MG) IV SLOW PU ONE (19:52)
[2018-08-07] MEDS: amLODIPine TAB* 5 MG PO SCH (21:24)
[2018-08-08] MEDS: oxyCODONE/Acetamin 5/325 MG* TAB PO PRN ×2 (05:06→14:41)
[2018-08-08 07:17] LABS: Calcium 8.9 mg/dL (8.6-10.3); Potassium 3.6 mmol/L (3.5-5.0)
[2018-08-08 07:23] LABS: BUN/Creatinine Ratio 13.8 (8-20); EGFR African American 129.5 (>60)
[2018-08-08] MEDS: Labetalol TAB* 200 MG PO SCH ×2 (07:32→09:04)
[2018-08-08] MEDS: Simethicone TAB* 80 MG TAB.CHEW PO SCH ×3 (07:32→14:40)
[2018-08-08] MEDS: Ferrous Gluconate TAB* 324 MG TAB PO SCH (07:34)
[2018-08-08] MEDS: Docusate CAP* 100 MG PO SCH ×2 (09:05→14:40)
[2018-08-08] MEDS: Hydrochlorothiazide TAB* 25 MG PO SCH (09:06)
[2018-08-08] MEDS: Ibuprofen TAB* 600 MG PO PRN ×2 (09:06→15:49)
[2018-08-08] MEDS: amLODIPine TAB* 5 MG PO SCH (09:06)
[2018-08-08 13:05] VITALS: BP 143/79
--- NOTE | 2018-08-08 15:17 | CONSULT ---
Subjective Interval History: Pt BPs better controlled on amlodipine 5mg bid, labetolol 400mg bid, and HCTZ 25mg daily. She denies headache, double vision, chest pain. 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, carpal tunnel syndrome Review of Systems - Measurements Intake and Output: Intake and Output Last 24 Hours 08/06/18 08/07/18 08/08/18 08/09/18 06:59 06:59 06:59 06:59 Intake Total 1200 Output Total 300 4800 250 Balance -300 -3600 -250 Weight 220 lb Intake: Oral 1200 Output: Urine 4800 250 [place] 300 Objective Active Medications: Acetaminophen (Tylenol Tab*) 650 mg PO Q4H PRN PRN Reason: PAIN Amlodipine Besylate (Norvasc Tab*) 5 mg PO BID [facility] Last Admin: 08/08/18 09:06 Dose: 5 mg Dibucaine (Nupercainal 1% Oint*) 1 applic MS QID PRN PRN Reason: DISCOMFORT Docusate Sodium (Colace Cap*) 100 mg PO TID [facility] Last Admin: 08/08/18 14:40 Dose: 100 mg Famotidine (Pepcid Tab*) 20 mg PO BID PRN; Protocol PRN Reason: HEARTBURN Glycerin (Glycerin Adult Supp*) 1 supp MS ONCE PRN PRN Reason: CONSTIPATION Hydrochlorothiazide (Hydrodiuril Tab*) 25 mg PO DAILY [facility] Last Admin: 08/08/18 09:06 Dose: 25 mg Magnesium Sulfate (Magnesium Sulfate Ob Premix*) 40 gm in 1,000 mls @ 50 mls/ hr IVPB .PER RATE [facility] Last Admin: 08/05/18 06:46 Dose: 50 mls/hr Lactated Ringer's (Lactated Ringers 1000 Ml Bag*) 1,000 mls @ 125 mls/hr IV PER RATE [facility] Lactated Ringer's (Lactated Ringers 1000 Ml Bag*) 1,000 mls @ 0 mls/hr IV KVO [facility] Ibuprofen (Motrin Tab*) 600 mg PO Q6H PRN PRN Reason: PAIN - MILD Last Admin: 08/08/18 09:06 Dose: 600 mg Labetalol HCl (Trandate Iv*) 20 mg IV PUSH ONCE PRN PRN Reason: BLOOD PRESSURE Last Admin: 08/04/18 08:25 Dose: 20 mg Labetalol HCl (Trandate Tab*) 400 mg PO BID [facility] Last Admin: 08/08/18 09:04 Dose: 400 mg Oxycodone/Acetaminophen (Percocet 5/325 Tab*) 1 tab PO Q4H PRN PRN Reason: PAIN - MODERATE Last Admin: 08/08/18 14:41 Dose: 1 tab Oxycodone/Acetaminophen (Percocet 5/325 Tab*) 2 tab PO Q4H PRN PRN Reason: PAIN - SEVERE Pharmacy Profile Note (Scopolamine Patch Remove*) 1 note PATCH OFF .AFTER 72 HOURS PRN PRN Reason: nausea Simethicone (Mylicon Tab*) 80 mg PO [facility] Last Admin: 08/08/18 14:40 Dose: 80 mg Witch Saloni (Tucks*) 1 pad TOPICAL .PRN PRN PRN Reason: DISCOMFORT Zolpidem Tartrate (Ambien Tab*) 5 mg PO BEDTIME PRN PRN Reason: SLEEP Vital Signs - 8 hr 08/08/18 08/08/18 08/08/18 08:33 09:56 10:13 Temperature 98.8 F Pulse Rate 89 93 Respiratory 16 18 Rate Blood Pressure 158/102 135/88 (mmHg) O2 Sat by Pulse Oximetry 08/08/18 08/08/18 11:30 14:41 Temperature 98.6 F Pulse Rate 86 Respiratory 18 18 Rate Blood Pressure 143/79 (mmHg) O2 Sat by Pulse 100 Oximetry Oxygen Devices in Use Now: None Appearance: well appearing, sitting at edge of bed using breast pump Ears/Nose/Mouth/Throat: Mucous Membranes Moist Neck: No Thyroid Enlargement, Masses Respiratory: Clear to Auscultation Cardiovascular: RRR Abdominal: NL Sounds; No Tenderness; No Distention Extremities: No Edema Neurological: Alert and Oriented x 3 Result Diagrams: 08/05/18 06:46 08/08/18 06:31 Assessment/Plan - Billing Assessment: 32 year old woman with pre-eclampsia, now 4 days post-, consulted for BP control. Recommendations: - continue labetalol 400 BID, Amlodipine 5mg bid, and HCTZ 25mg qd - pt educated to check BP at home, how to properly check her BP, and signs of dangerously high BP (double vision, chest pain, SOB) for which she should seek emergent care - avoid NSAIDs given transient effect on BP and albuminuria - UACR resulted elevated - will need to repeat again as outpatient. LOWELL-I/ARB likely contraindicated while patient , but could be considered later if albuminuria persists. - close f/u with OB and PCP post-discharge We will continue to follow with you while she remains admitted.
== END 2018-08-08 17:00 | disposition home or self-care (01) | DRG 540 ==
LOC: MCHOBOUT 15:47 → MCHOB 17:31
PROVIDERS: ADMIT Obstetrics & Gynecology; ATTEND Obstetrics & Gynecology
PROC: 3E033VJ Introduction of Other Hormone into Peripheral Vein, Percutaneous Approach (ICD-10-PCS; 2018-08-04)
PROC: 10907ZC Drainage of Amniotic Fluid, Therapeutic from Products of Conception, Via Natural or Artificial Opening (ICD-10-PCS; 2018-08-04)
PROC: 10D00Z1 Extraction of Products of Conception, Low, Open Approach (ICD-10-PCS; principal; 2018-08-04 09:45)
DX: O14.14 Severe pre-eclampsia complicating childbirth (principal); O41.03X0 Oligohydramnios, third trimester, not applicable or unspecified; O36.5930 Maternal care for other known or suspected poor fetal growth, third trimester, not applicable or unspecified; Z3A.36 36 weeks gestation of pregnancy; Z37.0 Single live birth
CPT/HCPCS: 36415; 80048; 80053; 82043; 82570; 83735; 84550; 85025; 86850; 86900; 86901; 88307; A9270-GY; J0360; J0694; J1940; J2405; J2590; J2765; J3475

== ENCOUNTER 2019-03-30 09:24 | Emergency (ER) | payer BC ==
--- OUTSIDE RECORDS SUMMARY | 2019-03-30 09:40 | XMS REPORT | Continuity of Care Document ---
:1985 External Reference #:[id number] Author Name Yoshi Kent JR DO (transmitted by agent of provider Bella Callaway ) Address [address] [place] [address] Care Team Providers Name Role Phone Tessa Mcdonough MD Care Team Information Neon Pumper [phone] Problems Active Problems Provider Date H/O: hypertension Ileana Mayen CNM Onset: 06/17/2018 Social History Type Date Description Comments Sex Unknown Tobacco Use Start: Unknown Never Smoked Cigarettes ETOH Use Denies alcohol use Tobacco Use Start: Unknown Patient has never smoked Recreational Drug Use Denies Drug Use Smoking Status Reviewed: 03/06/19 Patient has never smoked Seat Belt/Car Seat Always uses seat belt СВЕТЛАНА: 08/28/2018 Estimated Date of Based on 1st Delivery Ultrasound Allergies, Adverse Reactions, Alerts Active Allergies Reaction Severity Comments Date Sulfa Hives Moderate 06/17/2018 Bactrim Hives Moderate 06/17/2018 Medications Active Medications SIG Qnty Indications Ordering Provider Date Labetalol HCL 2 pill by mouth Unknown 200mg Tablets two times daily Adult 1 gummy by mouth Unknown Gummy/Dha/Folic Acid daily 0.4-25mg Chewtabs Aspir-Low 1 po qd Unknown 81mg Tablets DR History Medications Amlodipine Besylate take one tab PO 28tabs Abdi Sánchez MD 01/22/2019 - bid 02/21/2019 2.5mg Tablets Marychuy take 1 tablet by 28tabs Z39.2 Chalino Iyer, 09/26/2018 - 0.35mg Tablets mouth one time M.D. 01/08/2019 daily Medications Administered in Office Medication SIG Qnty Indications Ordering Provider Date PT SCRN Tbco Id as Non User Abdi Sánchez MD 02/28/2019 Injection PT SCRN Tbco Id as Non User Abdi Sánchez MD 01/22/2019 Injection Immunizations CPT Code Status Date Vaccine Lot # [id number] Given 02/21/2019 Influenza Vaccine Quadrivalent Preser/Antibiotic [id number] Free Im Use Vital Signs Date Vital Result Comment 03/06/2019 3:27pm BP Systolic 120 mmHg BP Diastolic 76 mmHg Height 62 inches 5'2" Weight 206.00 lb BMI (Body Mass Index) 37.7 kg/m2 Last Menstrual Period 0508758 2 Parity 1 02/28/2019 9:41am BP Systolic 122 mmHg BP Diastolic 80 mmHg Heart Rate 76 /min Respiratory Rate 16 /min Height 62 inches 5'2" Last Menstrual Period 0402005 2 Parity 1 Results Test Date Facility Test Result H/L Range Note Laboratory test 02/21/2019 [facility] HCG 65138.00 [address] [place] [address] mIU/mL [phone] Laboratory test 02/19/2019 [facility] HCG 64679.00 [address] [place] [address] mIU/mL [phone] 1 <5.0 Negative 5.0 - 25.0 Indeterminate (Repeat testing recommended after 72 hours) >25.0 Positive Perimenopausal women can display HCG levels of up to 20 mIU/mL 2 <5.0 Negative 5.0 - 25.0 Indeterminate (Repeat testing recommended after 72 hours) >25.0 Positive Perimenopausal women can display HCG levels of up to 20 mIU/mL Procedures Date Code Description Status 03/06/2019 51928 Echography Transvaginal Completed 02/28/2019 71926 Echography Transvaginal Completed Medical Devices Description No Information Available Encounters Type Date Location Provider Dx Diagnosis Office Visit 02/28/2019 [facility] Abdi Sánchez MD Z01.818 Encounter for other 9:30a preprocedural examination O02.1 Missed Office Visit 01/22/2019 11:00a [facility] Abdi Sánchez, O10.011 Pre- existing essential htn comp , first trimester Assessments Date Code Description Provider 03/06/2019 O02.1 Missed Ultrasounds 02/28/2019 O20.8 Other hemorrhage in early Abdi Sánchez MD 02/28/2019 Z01.818 Encounter for other preprocedural Abdi Sánchez MD examination 02/28/2019 O20.8 Other hemorrhage in early Ultrasounds 02/28/2019 O02.1 Missed Abdi Sánchez MD 02/21/2019 O36.80x0 with inconclusive Tash Naqvi MD viability, not applicable or unspecified 02/21/2019 Z23 Encounter for immunization La Orr CNM 02/21/2019 O36.80x0 with inconclusive La Orr CNM viability, not applicable or unspecified 02/21/2019 O36.80x0 with inconclusive Laboratory viability, not applicable or unspecified 02/19/2019 O36.80x0 with inconclusive Tash Naqvi MD viability, not applicable or unspecified 02/19/2019 O36.80x0 with inconclusive Laboratory viability, not applicable or unspecified 01/22/2019 O10.011 Pre-existing essential hypertension Abdi Sánchez MD complicating , first trimester 09/26/2018 Z39.2 Encounter for routine follow-up Chalino Iyer M.D. 09/26/2018 O14.15 Severe pre-eclampsia, complicating the Chalino Iyer M.D. [place] Plan of Treatment 08/14/2018 - Cristal Dunn MDO14.13 Severe pre-eclampsia, third trimesterComments:Continue with no heavy lifting. Increase fluid intake!Return for pp visit in 1moZ39.2 Encounter for routine follow-up Functional Status Description No Information Available Mental Status Description No Information Available Referrals Description No Information Available
--- OUTSIDE RECORDS SUMMARY | 2019-03-30 09:40 | XMS REPORT | Continuity of Care Document ---
:1985 External Reference #:[id number] Author Name Abdi Sánchez MD Address [address] [place] [address] Care Team Providers Name Role Phone Tessa Mcdonough MD Care Team Information Sr. Strategic Sourcing Manager [phone] Problems Active Problems Provider Date H/O: hypertension Ileana MIQUEL Mayen Onset: 06/17/2018 Social History Type Date Description Comments Sex Unknown Tobacco Use Start: Unknown Never Smoked Cigarettes ETOH Use Denies alcohol use Tobacco Use Start: Unknown Patient has never smoked Recreational Drug Use Denies Drug Use Smoking Status Reviewed: 02/28/19 Patient has never smoked Seat Belt/Car Seat [...] History Medications Amlodipine Besylate take one tab 28tabs Abdi Sánchez 01/22/2019 - 2.5mg Tablets PO bid 02/21/2019 Marychuy take 1 tablet 28tabs Z39.2 Chalino Vee 09/26/2018 - 0.35mg Tablets by mouth one Jacob Iyer 01/08/2019 time daily Hydrochlorothiazide take 1 tablet 90tabs Chalino Vee 09/03/2018 - 25mg Tablets by mouth once Jacob Iyer 08/27/2018 daily Amlodipine Besylate take 1 tablet 60tabs Chalino ValderramaRocío 09/03/2018 - 5mg Tablets by mouth twice Jacob Iyer 01/22/2019 a day Medications Administered in Office Medication SIG Qnty Indications Ordering Provider Date PT SCRN Tbco Id as Non User Abdi Sánchez MD 02/28/2019 Injection PT SCRN Tbco Id as Non User Abdi Sánchez MD 01/22/2019 Injection Immunizations CPT Code Status Date Vaccine Lot # [id number] Given 02/21/2019 Influenza Vaccine Quadrivalent Preser/Antibiotic [id number] Free Im Use Vital Signs Date Vital Result Comment 02/28/2019 9:41am BP Systolic 122 mmHg BP Diastolic 80 mmHg Heart Rate 76 /min Respiratory Rate 16 /min Height 62 inches 5'2" Last Menstrual Period 2916341 2 Parity 1 02/21/2019 8:03am BP Systolic 116 mmHg BP Diastolic 72 mmHg Height 62 inches 5'2" Weight 202.00 lb BMI (Body Mass Index) 36.9 kg/m2 Last Menstrual Period 4781865 2 Parity 1 Results Test Date Facility Test Result H/L Range Note Laboratory test 02/21/2019 [facility] HCG 13848.00 [address] [place] [address] mIU/mL [phone] Laboratory test 02/19/2019 [facility] HCG 03516.00 [address] [place] [address] mIU/mL [phone] 1 <5.0 Negative 5.0 - 25.0 Indeterminate (Repeat testing recommended after 72 hours) >25.0 Positive Perimenopausal women can display HCG levels of up to 20 mIU/mL 2 <5.0 Negative 5.0 - 25.0 Indeterminate (Repeat testing recommended after 72 hours) >25.0 Positive Perimenopausal women can display HCG levels of up to 20 mIU/mL Procedures Date Code Description Status 02/28/2019 48681 Echography Transvaginal Completed Medical Devices Description No Information Available Encounters Type Date Location Provider Dx Diagnosis Office Visit 02/28/2019 [facility] Abdi Sánchez MD Z01.818 Encounter for other 9:30a preprocedural examination O02.1 Missed Office Visit 01/22/2019 11:00a [facility] Abdi Sánchez, O10.011 Pre- existing MD essential htn comp , first trimester Assessments Date Code Description Provider 02/28/2019 Z01.818 Encounter for other preprocedural Abdi [...] Chalino Iyer M.D. [place] Plan of Treatment Future Appointment(s):03/01/2019 1:00 pm - Abdi Sánchez MD at [facility] O R02018 - Cristal Dunn MDO14.13 Severe pre-eclampsia, third trimesterComments: Continue with no heavy lifting. Increase fluid intake!Return for pp visit in 1moZ39.2 Encounter for routine follow-up Functional Status Description No Information Available Mental Status Description No Information Available Referrals Description No Information Available
[2019-03-30 09:47] VITALS: BP 134/90
--- NOTE | 2019-03-30 10:05 | UC ---
Throat Pain/Nasal Baldemar HPI - HPI Summary HPI Summary: 33-year-old female presents with onset of sore throat this morning. States she was recently visiting her parents who were both diagnosed with strep throat. Denies fever, chills, nasal congestion, dysphagia, ear pain, cough, chest pain, shortness of breath, abdominal pain, nausea, or vomiting. - History of Current Complaint Chief Complaint: UCRespiratory Stated Complaint: SORE THROAT Time Seen by Provider: 03/30/19 10:01 Hx Obtained From: Patient Hx Last Menstrual Period: prior to miscarriage 4 weeks ago Pain Intensity: 5 - Allergies/Home Medications Allergies/Adverse Reactions: Allergies Allergy/AdvReac Type Severity Reaction Status Date / Time Sulfa (Sulfonamide Allergy Hives Verified 03/30/19 09:41 Antibiotics) sulfamethoxazole Allergy Hives Verified 03/30/19 09:41 [From Bactrim] trimethoprim [From Bactrim] Allergy Hives Verified 03/30/19 09:41 PMH/Surg Hx/FS Hx/Imm Hx Cardiovascular History: Hypertension - Surgical History Surgical History: Yes Surgery Procedure, Year, and Place: hernia repair age 5. 8 MONTHS AGO - Family History Known Family History: Positive: Non-Contributory - Social History Occupation: Employed Full-time Lives: With Family Alcohol Use: Rare Alcohol Amount: none with Substance Use Type: None Smoking Status (MU): Never Smoked Tobacco Have You Smoked in the Last Year: No - Immunization History Most Recent Influenza Vaccination: 04/2019 Most Recent Pneumonia Vaccination: none Review of Systems All Other Systems Reviewed And Are Negative: Yes Constitutional: Negative: Fever, Chills Skin: Negative: Rash Eyes: Negative: Drainage, Eye Redness ENT: Positive: Sore Throat. Negative: Ear Ache, Nasal Discharge, Sinus Congestion, Sinus Pain/Tenderness Respiratory: Negative: Shortness Of Breath, Cough Cardiovascular: Negative: Chest Pain Gastrointestinal: Negative: Abdominal Pain, Vomiting, Nausea Genitourinary: Positive: Negative Musculoskeletal: Positive: Negative Neurological: Positive: Negative Is Patient Immunocompromised?: No Physical Exam - Summary Physical Exam Summary: GENERAL APPEARANCE: Alert and cooperative adult female who appears to be in no acute distress. EYES: Conjunctiva clear. No drainage. EARS: External auditory canals and tympanic membranes clear, hearing grossly intact. NOSE: No nasal congestion or discharge. THROAT: Pharyngeal erythema. No tonsilar inflammation, swelling, exudate, or lesions. Uvula midline. NECK: Neck supple, non-tender without lymphadenopathy. CARDIAC: Normal S1 and S2. No S3, S4 or murmurs. Rhythm is regular. There is no peripheral edema, cyanosis or pallor. Extremities are warm and well perfused. Capillary refill is less than 2 seconds. Peripheral pulses intact. LUNGS: Clear to auscultation without rales, rhonchi, wheezing or diminished breath sounds. ABDOMEN: Positive bowel sounds. Soft, nondistended, nontender. No guarding or rebound. No masses or hepatosplenomegally. MUSKULOSKELETAL: ROM intact to all extremities. No joint erythema or tenderness. Normal muscular development. Normal gait. SKIN: Skin normal color, texture and turgor with no lesions or eruptions. Triage Information Reviewed: Yes Vital Signs: Initial Vital Signs Temp 97.8 F 03/30/19 09:42 Pulse 83 03/30/19 09:42 Resp 16 03/30/19 09:42 BP 134/90 03/30/19 09:42 Pulse Ox 100 03/30/19 09:42 Vital Signs Reviewed: Yes Throat Pain/Nasal Course/Dx - Course Course Of Treatment: 33-year-old female presents with onset of sore throat this morning. States she was recently visiting her parents who were both diagnosed with strep throat. Denies fever, chills, nasal congestion, dysphagia, ear pain, cough, chest pain, shortness of breath, abdominal pain, nausea, or vomiting. Afebrile. Vital signs stable. Patient had some pharyngeal erythema without tonsillar swelling or exudate, no cervical lymphadenopathy, and otherwise unremarkable exam. Rapid strep test was negative. Recommending symptomatically treatment for viral pharyngitis. She is to return here follow-up with her primary care provider in 5-7 days if symptoms are not improving. Anticipatory guidance and warning symptoms were reviewed with the patient. Verbalizes understanding and agrees with plan of care. - Differential Dx/Diagnosis Differential Diagnosis/HQI/PQRI: Mononucleosis, Pharyngitis, Tonsillitis, URI Provider Diagnosis: Viral pharyngitis Discharge ED - Sign-Out/Discharge Documenting (check all that apply): Patient Departure All imaging exams completed and their final reports reviewed: No Studies - Discharge Plan Condition: Stable Disposition: HOME Patient Education Materials: Pharyngitis (ED) Referrals: Christiane Mcdonough MD [Primary Care Provider] - 5 Days Additional Instructions: Your rapid strep test in the clinic today was negative. Your symptoms are likely from a viral infection. Viral infections do not respond to antibiotics and are limited to the treatment of symptoms. Viral infections typically run their course in 7-10 days. Drink plenty of fluids to avoid dehydration especially if you are running any fever. Use salt water gargles several times a day. Take over the counter acetaminophen (Tylenol) or ibuprofen (Advil, Motrin) according to directions as needed for pain or fever. You may also use Chloraseptic spray or Cepacol lonzenges according to directions which contain a numbing medication and can provide some temporary relief from your sore throat. Return here or follow up with your primary care provider in 5-7 days if symptoms persist. Seek immediate medical attention in the emergency room if you have fever greater than 100.5 F despite taking acetaminophen or ibuprofen, are unable to swallow or develop drooling, are unable to open your mouth fully, are unable to eat or drink, have pain that is not relieved with over the counter pain medication, or have any difficulty breathing. - Billing Disposition and Condition Condition: STABLE Disposition: Home
== END 2019-03-30 10:14 | disposition home or self-care (01) ==
LOC: UCCORT 09:24
DX: J02.0 Streptococcal pharyngitis (principal); I10 Essential (primary) hypertension; Z88.2 Allergy status to sulfonamides
CPT/HCPCS: 87651; 99211; G0463

== ENCOUNTER 2021-02-04 10:20 | Inpatient (IN) ==
[2021-02-04] MEDS ORDERED: Buffered Lidocaine 1% SYRIN 1 ml INTRADERM ONE ×2 (11:03→11:08)
[2021-02-04] MEDS ORDERED: Lactated Ringers 1000 ml BAG 1,000 ML IV ONE ×2 (11:08→16:36)
[2021-02-04 11:48] LABS: ABS Eosinophils 0.1 10^3/ul (0-0.6); ABS Lymphocytes 1.6 10^3/ul (1.0-4.8); ABS Monocytes 0.6 10^3/ul (0-0.8); ABS Neutrophils 5.7 10^3/ul (1.5-7.7); Eosinophil % 0.9 %; Hematocrit 33 % (35-47); Lymphocyte % 20.1 %; Mean Corpuscular HGB Conc 33 g/dL (31-36); Mean Corpuscular Hemoglobin 29 pg (27-31); Mean Corpuscular Volume 88 fL (80-97); Mean Platelet Volume 10.1 fL (7.4-10.4); Platelet Count 199 10^3/uL (150-450); Red Blood Count 3.77 10^6 /uL (3.70-4.87); Red Cell Distribution Width 18 % (10-15)
[2021-02-04] MEDS ORDERED: Oxytocin in LR 20 UNITS/1,000 ML BAG IVPB SCH (12:00)
[2021-02-04 12:09] LABS: Albumin 3.6 g/dL (3.2-5.2); Albumin/Globulin Ratio 1.2 (1-3); Calcium 9.1 mg/dL (8.6-10.3); EGFR Non-African American 117.4 (>60); Globulin 2.9 g/dL (2-4); Potassium 3.8 mmol/L (3.5-5.0); Total Bilirubin 0.4 mg/dL (0.2-1.0); Total Protein 6.5 g/dL (6.4-8.9); Uric Acid 4.9 mg/dL (2.3-6.6)
[2021-02-04 12:27] LABS: Urine Benzodiazepine Screen None Detected (None Detect); Urine Cannabinoids Screen None Detected (None Detect); Urine Opiates Screen None Detected (None Detect)
[2021-02-04 12:37] LABS: Urine Appearance Cloudy; Urine Bilirubin Negative (Negative); Urine Blood Negative (Negative); Urine Color Yellow; Urine Glucose Negative (Negative); Urine Ketones Negative (Negative); Urine Nitrite Negative (Negative); Urine Protein Negative (Negative); Urine Specific Gravity 1.018 (1.002-1.030); Urine Urobilinogen Negative (Negative)
[2021-02-04 12:58] LABS: Urine Bacteria 1+ (Absent); Urine Red Blood Cell 1+(3-5/hpf) (Absent); Urine Squamous Epithelial Cell Present (Absent); Urine White Blood Cell Trace(0-5/hpf) (Absent)
[2021-02-04] MEDS ORDERED: OBEPIDURAL 250 ML EPIDURAL ONE (15:26)
[2021-02-04] MEDS: Lactated Ringers 1000 ml BAG 1,000 ML IV SCH ×2 (16:19→22:18)
[2021-02-04] MEDS ORDERED: EPHEDrine (Pressors) 50 MG/ML VIAL IV PUSH PRN ×2 (16:36)
[2021-02-04] MEDS ORDERED: Sodium Citrate/Citric Acid LIQ 15 ML UDC PO PRN (16:36)
[2021-02-04] MEDS ORDERED: Phenylephrine 40 mcg/mL 10mL (400mcg) SYRINGE IV PUSH PRN ×2 (16:36)
[2021-02-04] MEDS ORDERED: Lactated Ringers 1000 ml BAG 1,000 ML IV SCH (17:00)
[2021-02-04 17:12] LABS: Urine Appearance Clear; Urine Bilirubin Negative (Negative); Urine Blood Negative (Negative); Urine Color Yellow; Urine Glucose Negative (Negative); Urine Ketones Negative (Negative); Urine Nitrite Negative (Negative); Urine Protein Negative (Negative); Urine Specific Gravity 1.017 (1.002-1.030); Urine Urobilinogen Negative (Negative)
[2021-02-04] MEDS: OBEPIDURAL 250 ML EPIDURAL SCH (18:48)
[2021-02-04] MEDS ORDERED: Calcium Carb (TUMS) 500 mg CHEW TAB PO PRN (23:06)
[2021-02-05] MEDS: Lactated Ringers 1000 ml BAG 1,000 ML IV SCH (06:22)
[2021-02-05] MEDS ORDERED: Lidocaine 2% w/ EPI 1:200,000 MPF 20 ML SDV VIAL ONE (07:21)
[2021-02-05] MEDS ORDERED: ceFOXitin 2 GM IVPREMIX 2 GM/50 ML BAG IVPB ONE (07:26)
[2021-02-05] MEDS ORDERED: ceFOXitin 2 GM IVPREMIX 2 GM/50 ML BAG ONE (07:35)
[2021-02-05] MEDS ORDERED: Dexamethasone IV 4 MG/ML VIAL 1 ml VIAL ONE (08:29)
[2021-02-05] MEDS ORDERED: Ondansetron 4 mg VIAL 2 MG/ML 2 ml VIAL ONE (08:29)
[2021-02-05] MEDS ORDERED: Oxytocin 10 UNITS/ML 1 ML VIAL ONE ×2 (08:29→09:18)
[2021-02-05] MEDS ORDERED: Morphine PF AMP (0.5MG/ML) 5 MG/10 ML AMP ONE (08:58)
[2021-02-05] MEDS ORDERED: fentaNYL 100 mcg/2 ml 50 MCG/ML VIAL ONE ×2 (08:58→11:11)
[2021-02-05] MEDS ORDERED: Ondansetron 4 mg VIAL 2 MG/ML 2 ml VIAL IV PRN (09:12)
[2021-02-05] MEDS ORDERED: oxyCODONE/Acetamin 5/325 mg TAB PO PRN (09:12)
[2021-02-05] MEDS ORDERED: DiMENhydriNATE IV 50 mg/ml 1 ml VIAL IV PUSH PRN (09:12)
[2021-02-05] MEDS ORDERED: Naloxone 0.4 mg VIAL 0.4 mg/ml 1 ml VIAL IV PRN (09:12)
[2021-02-05] MEDS ORDERED: Dibucaine 1% OINT 28.35 GM TUBE PR PRN (10:18)
[2021-02-05] MEDS ORDERED: Witch Hazel PAD JAR TOPICAL PRN (10:18)
[2021-02-05] MEDS ORDERED: Glycerin ADULT 2.4 gm SUPP PR PRN (10:18)
[2021-02-05] MEDS ORDERED: Oxytocin in LR 20 UNITS/1,000 ML BAG IVPB SCH (11:00)
[2021-02-05] MEDS ORDERED: Acetaminophen IV 1 GM/100ML 100 ML IV ONE (11:10)
[2021-02-05] MEDS ORDERED: fentaNYL 100 mcg/2 ml 50 MCG/ML VIAL IV PRN (11:16)
[2021-02-05] MEDS: diPHENhydraMINE IV 50 MG/ML 1 ml VIAL (BENADRYL) IV PRN ×2 (11:40→17:45)
[2021-02-05 14:38] LABS: Urine Appearance Cloudy; Urine Bilirubin Negative (Negative); Urine Blood Negative (Negative); Urine Color Yellow; Urine Glucose Negative (Negative); Urine Ketones Negative (Negative); Urine Nitrite Negative (Negative); Urine Protein Negative (Negative); Urine Specific Gravity 1.018 (1.002-1.030); Urine Urobilinogen Negative (Negative)
[2021-02-05 14:52] LABS: Urine Bacteria 1+ (Absent); Urine Red Blood Cell Trace(0-2/hpf) (Absent); Urine Squamous Epithelial Cell Present (Absent); Urine White Blood Cell Trace(0-5/hpf) (Absent)
[2021-02-05] MEDS: OBEPIDURAL 250 ML EPIDURAL SCH (17:26)
[2021-02-05] MEDS: Amoxicillin/Clavul 500/125 TAB (Augmentin 500 mg tab) PO SCH (20:18)
[2021-02-06 06:50] LABS: ABS Eosinophils 0.1 10^3/ul (0-0.6); ABS Lymphocytes 2.9 10^3/ul (1.0-4.8); ABS Monocytes 0.9 10^3/ul (0-0.8); ABS Neutrophils 8.2 10^3/ul (1.5-7.7); Eosinophil % 1.1 %; Hematocrit 29 % (35-47); Hemoglobin 9.6 g/dL (12.0-16.0); Lymphocyte % 23.6 %; Mean Corpuscular HGB Conc 34 g/dL (31-36); Mean Corpuscular Hemoglobin 30 pg (27-31); Mean Corpuscular Volume 89 fL (80-97); Mean Platelet Volume 10.3 fL (7.4-10.4); Platelet Count 169 10^3/uL (150-450); Red Blood Count 3.25 10^6 /uL (3.70-4.87); Red Cell Distribution Width 18 % (10-15); White Blood Count 12.1 10^3/uL (3.5-10.8)
[2021-02-06] MEDS: Amoxicillin/Clavul 500/125 TAB (Augmentin 500 mg tab) PO SCH ×2 (08:02→20:02)
[2021-02-07 07:46] VITALS: BP 141/73
[2021-02-07] MEDS: Amoxicillin/Clavul 500/125 TAB (Augmentin 500 mg tab) PO SCH (08:28)
== END 2021-02-07 10:44 | disposition home or self-care (01) | DRG 540 ==
LOC: MCHOBOUT 10:20 → MCHOB 11:08
PROVIDERS: ADMIT Obstetrics & Gynecology; ATTEND Obstetrics & Gynecology